=== PATIENT | male | born 1965 | race Two or more races ===

== ENCOUNTER 2025-02-18 18:23 | Emergency (ER) | payer OTHER ==
[~2025-02-18] VITALS: Ht 165.1 cm; Wt 79.5 kg
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
[2025-02-18 19:25] LABS: Hematocrit 44.5 % (41.0-53.0); Hemoglobin 15.3 g/dL (13.5-17.5); Mean Corpuscular Hemoglobin 32.0 pg (28.0-32.0); Mean Corpuscular Volume 93.1 fL (80.0-100.0); Nucleated Red Blood Cells % 0.1 %
[2025-02-18 19:41] LABS: Potassium 4.2 mmol/L (3.5-5.1); Sodium 141 mmol/L (136-145)
[2025-02-18 19:42] LABS: Anion Gap 12 (5-15); Carbon Dioxide 22 mmol/L (20-31)
[2025-02-18 19:43] LABS: Calcium 10.2 mg/dL (8.7-10.4)
[2025-02-18 19:44] LABS: Chloride 107 mmol/L (98-107)
[2025-02-18 19:45] VITALS: PULSE 65; RESP 19; TEMP 98.2; O2SAT 96
[2025-02-18] MEDS: HYDROcodone-ACET 5/325MG TAB PO ONE (19:45)
[2025-02-18 19:47] LABS: Glucose 104 mg/dL (74-106)
[2025-02-18 19:48] LABS: BUN/Creatinine Ratio 30.3 (10.0-20.0)
[2025-02-18 19:54] LABS: Blood Urea Nitrogen 23 mg/dL (9-23)
[2025-02-18] MEDS ORDERED: CYCL-839 PO (21:04)
[2025-02-18] MEDS ORDERED: IBU600T PO (21:04)
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
--- NOTE | 2025-02-18 21:20 | DVH ---
INDICATION: cp TECHNIQUE: Frontal view of the chest. COMPARISON: None FINDINGS: The lungs are clear. Status post median sternotomy with post CABG change. Status post left atrial yisel endage closure. Bones are unremarkable. IMPRESSION: 1. No evidence of acute disease. 2. Post CABG and left atrial chamber closure
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
[2025-02-18 21:28] VITALS: BP 146/72; PULSE 90; RESP 15; O2SAT 95
== END 2025-02-18 21:31 | disposition home or self-care (01) ==
LOC: ER 18:23
DX: S46.812A Strain of other muscles, fascia and tendons at shoulder and upper arm level, left arm, initial encounter (principal); S46.811A Strain of other muscles, fascia and tendons at shoulder and upper arm level, right arm, initial encounter; S20.219A Contusion of unspecified front wall of thorax, initial encounter; M54.59 Other low back pain; V89.2XXA Person injured in unspecified motor-vehicle accident, traffic, initial encounter; Y93.89 Activity, other specified; Y92.488 Other paved roadways as the place of occurrence of the external cause; Y99.8 Other external cause status
CPT/HCPCS: 36415; 71045; 72100; 73030; 80048; 84484; 85025